=== PATIENT | female | born 1995 | race Caucasian/White ===

== ENCOUNTER 2017-05-18 01:30 | Inpatient (IN) | payer BC ==
[2017-05-18] MEDS ORDERED: ONDANSETRON 4 MG/2 ML VIAL IVP ONE (01:37)
[2017-05-18] MEDS ORDERED: NS 1,000 ML IV ONE ×2 (01:37→01:38)
--- NOTE | 2017-05-18 01:37 | EDPHY ---
H & P Stated Complaint: LUQ pain with vomitting starting 1800 HPI/ROS: HPI CHIEF COMPLAINT: Abdominal pain nausea vomiting abdominal distention HISTORY OF PRESENT ILLNESS: This patient very pleasant 21-year-old female she does have significant past medical history for diaphragmatic hernia repaired very young age. Left-sided. Additionally scoliosis surgery. Otherwise healthy no significant medical history. She does not take any daily medications. She presents emergency room nausea vomiting and abdominal pain abdominal distention and bloating for the past 8 hours. She states started 6: 00 p.m.. Bowel movement earlier this morning. No fever. No chest pain or shortness of breath. No back pain. States that her vomiting is persistent. Denies being . Currently on her menstrual cycle. Past Medical History: No significant medical history Past Surgical History: Scoliosis surgery, diaphragmatic hernia repair Social History: Denies daily use of drugs alcohol tobacco products. [employer] student. Family History: Noncontributory. ROS REVIEW OF SYSTEMS: A comprehensive 10 point review of systems is otherwise negative aside from elements mentioned in the history of present illness. Exam Constitutional appears nontoxic triage nursing summary reviewed, vital signs reviewed, awake/alert. Eyes normal conjunctivae and sclera, EOMI, PERRLA. HENT normal inspection, atraumatic, moist mucus membranes, no epistaxis, neck supple/ no meningismus, no raccoon eyes. Respiratory clear to auscultation bilaterally, normal breath sounds, no respiratory distress, no wheezing. Cardiovascular rate normal, regular rhythm, no murmur, no edema, distal pulses normal. Gastrointestinal abdomen is distended, somewhat bowel sounds, no high pitched noise, distended. Tender diffusely. Genitourinary no CVA tenderness. Musculoskeletal no midline vertebral tenderness, full range of motion, no calf swelling, no tenderness of extremities, no meningismus, good pulses, neurovascularly intact. Skin pink, warm, & dry, no rash, skin atraumatic. Neurologic awake, alert and oriented x 3, AAOx3, moves all 4 extremities equally, motor intact, sensory intact, CN II-XII intact, normal cerebellar, normal vision, normal speech. Psychiatric normal mood/affect. Heme/Lymph/Immune no lymphadenopathy. Differential diagnosis includes but is not limited to and in no particular order : Bowel obstruction, appendicitis, gallbladder disease, diverticulitis, colitis , enteritis, perforated viscus, gastritis, GERD, esophagitis, urinary tract infection, pyelonephritis, kidney stones Medical Decision Making: Plan for this patient IV fluids, Zofran for nausea Dilaudid for pain control. KUB upright. Check blood work. Rule out bowel obstruction. test. Urinalysis. Re-evaluation: 399 CT scan of the abdomen pelvis with IV contrast. The results of the study are shows a small bowel obstruction most likely cause of the anterior abdominal wall. Most likely he shins. Dilated small-bowel loops with free fluid present. No free air. The study was read by Dr. Grewal. I viewed the images myself on the PACS system. 0403; patient had an NG-tube placed. Surgery will be consult on should be admitted to the hospital. NPO. IV fluid NG tube. Bowel rest. And Surgical consult. Source: Patient - Personal History LMP (Females 10-55): Now Current Tetanus/Diphtheria Vaccine: Yes - Medical/Surgical History Hx Asthma: Yes Hx Chronic Respiratory Disease: No Hx Diabetes: No Hx Cardiac Disease: No Hx Renal Disease: No Hx Cirrhosis: No Hx Alcoholism: No Hx HIV/AIDS: No Hx Splenectomy or Spleen Trauma: No - Social History Smoking Status: Never smoked Constitutional: Initial Vital Signs Temperature (C) 36.4 C 05/18/17 01:31 Heart Rate 96 05/18/17 01:31 Respiratory Rate 18 05/18/17 01:31 Blood Pressure 139/91 H 05/18/17 01:31 O2 Sat (%) 96 05/18/17 01:31 O2 Delivery Mode Room Air Allergies/Adverse Reactions: penicillin G Allergy (Verified 05/18/17 01:35) Home Medications: Medication Instructions Recorded Levalbuterol Inhaler [Xopenex Hfa 1 puffs IH DAILY PRN 05/18/17 Inhaler (*)] Norgestimate-Ethinyl Estradiol 1 each PO DAILY 05/18/17 [Trinessa Tablet] Medical Decision Making - Data Points Laboratory Results: Laboratory Results 05/18/17 01:45 05/18/17 01:45 Medications Given: Potassium Chloride/Dextrose/Sod Cl (D5w 1/2 Ns W/ 20 Kcl/L) 1,000 mls @ 100 mls /hr IV CONT SHAKA Stop: 11/14/17 04:44 Last Admin: 05/19/17 14:43 Dose: 1,000 mls Ketorolac Tromethamine (Toradol) 15 mg IVP Q6HRS PRN PRN Reason: Pain, Inflammatory Stop: 05/23/17 06:10 Last Admin: 05/19/17 19:40 Dose: 15 mg Morphine Sulfate (Morphine) 1 - 2 mg IVP Q1HR PRN PRN Reason: Pain, Severe Unable to Take PO Stop: 05/28/17 04:34 Last Admin: 05/19/17 23:25 Dose: 2 mg Ondansetron HCl (Zofran) 4 mg IVP Q4HRS PRN PRN Reason: Nausea/Vomiting, Can't Take PO Stop: 11/14/17 04:34 Last Admin: 05/18/17 15:15 Dose: 4 mg Ondansetron HCl (Zofran Odt) 4 mg PO Q4HRS PRN PRN Reason: Nausea/Vomiting, Use 1st Stop: 11/14/17 04:34 Last Admin: 05/18/17 21:15 Dose: 4 mg Promethazine HCl (Phenergan) 6.25 - 12.5 mg IVP Q6HRS PRN PRN Reason: Nausea/Vomiting, Use 2nd Stop: 11/14/17 04:34 Last Admin: 05/19/17 00:03 Dose: 12.5 mg Discontinued Medications Hydromorphone HCl (Dilaudid) 0.5 mg IVP EDNOW ONE Stop: 05/18/17 01:42 Last Admin: 05/18/17 02:09 Dose: 0.5 mg Hydromorphone HCl (Dilaudid) 0.5 mg IVP EDNOW ONE Stop: 05/18/17 03:53 Last Admin: 05/18/17 03:55 Dose: 0.5 mg Sodium Chloride (Ns) 1,000 mls @ 0 mls/hr IV EDNOW ONE; Wide Open PRN Reason: Protocol Stop: 05/18/17 01:38 Last Admin: 05/18/17 01:49 Dose: 1,000 mls Sodium Chloride (Ns) 1,000 mls @ 0 mls/hr IV ONCE ONE PRN Reason: Wide Open Stop: 05/18/17 01:39 Last Admin: 05/18/17 02:12 Dose: 1,000 mls Ondansetron HCl (Zofran) 4 mg IVP EDNOW ONE Stop: 05/18/17 01:38 Last Admin: 05/18/17 02:09 Dose: 4 mg Departure - Departure Disposition: [facility] Inpatient Acute Clinical Impression: SBO (small bowel obstruction) Abdominal pain Qualifiers: Abdominal location: generalized Qualified Code(s): R10.84 - Generalized abdominal pain Condition: Fair
[2017-05-18] MEDS ORDERED: HYDROmorphONE/DILAUDID 1 MG/ML INJ IVP ONE ×2 (01:41→03:52)
[2017-05-18 01:55] LABS: % IMMATURE GRANULYOCYTES 0.3 % (0.0-1.1); ABSOLUTE IMMATURE GRANULOCYTES 0.05 10^3/uL (0.00-0.10); ADD DIFF? NO; ADD MORPH? NO; ADD SCAN? NO; ATYPICAL LYMPHOCYTE FLAG 0 (0-99); FRAGMENT RBC FLAG 0 (0-99); HEMOGLOBIN 16.7 g/dL (12.6-16.3); LEFT SHIFT FLG 0 (0-99); LIPEMIA HEMOLYSIS FLAG 80 (0-99); MEAN CELL HEMOGLOBIN 30.8 pg (27.9-34.1); MEAN CELL HEMOGLOBIN CONCENTR. 33.4 g/dL (32.4-36.7); MEAN CELL VOLUME 92.3 fL (81.5-99.8); MEAN PLATELET VOLUME 9.7 fL (8.7-11.7); PLATELET CLUMPS FLAG 0 (0-99); PLATELET COUNT 277 10^3/uL (150-400); RED BLOOD CELL COUNT 5.42 10^6/uL (4.18-5.33)
[2017-05-18 02:10] LABS: ALANINE AMINOTRANSFERASE 43 IU/L (9-52); ALBUMIN 4.8 g/dL (3.5-5.0); ALKALINE PHOSPHATASE 41 IU/L (38-126); ANION GAP 18 mEq/L (8-16); ASPARTATE AMINOTRANSFERASE 31 IU/L (14-46); BILIRUBIN,TOTAL 0.7 mg/dL (0.1-1.4); BILIRUBIN-CONJUGATED 0.4 mg/dL (0.0-0.5); BILIRUBIN-UNCONJUGATED 0.3 mg/dL (0.0-1.1); CALCIUM 10.3 mg/dL (8.5-10.4); CARBON DIOXIDE 21 mEq/l (22-31); CHLORIDE 102 mEq/L (97-110); CREATININE 0.8 mg/dL (0.6-1.0); GLOMERULAR FILTRATION RATE > 60; GLUCOSE 128 mg/dL (70-100); POTASSIUM 4.4 mEq/L (3.5-5.2); SODIUM 141 mEq/L (134-144); TOTAL PROTEIN 8.7 g/dL (6.3-8.2)
[2017-05-18] MEDS ORDERED: IOPAMIDOL (ISOVUE-300) 100 ML BTL ONE ×2 (02:38→02:58)
[2017-05-18] MEDS ORDERED: ONDANSETRON DISINTEGRATING 4 MG TAB PO PRN (04:35)
[2017-05-18] MEDS ORDERED: ONDANSETRON 4 MG/2 ML VIAL IVP PRN (04:35)
--- NOTE | 2017-05-18 05:13 | GHP ---
[f rep st] HISTORY AND PHYSICAL DATE OF ADMISSION: 05/18/2017 CHIEF COMPLAINT: Abdominal pain with nausea and vomiting. HISTORY OF PRESENT ILLNESS: This is an otherwise healthy 21-year-old female who was in her usual state of health until about 6 p.m. this evening. The patient states that she ate a late afternoon snack and was feeling fine and then out of no where, started to have abdominal distention and pain, which is associated with nausea and multiple bouts of vomiting. This persisted, which prompted her presentation here at the emergency department. Once here in the emergency department, she received some IV fluids and pain medicine, which helped with her abdominal pain, but she still remains distended. She states that she has had an episode similar to this previously over the summer, which abated with n.p.o. and a fluid restriction at home. This episode is much worse. She describes her pain as crampy in the left side of the abdomen and colicky in nature, better with abstaining from p.o. intake and worse with strenuous activity. She has not passed gas for most of the day. She has been nauseated and has been vomiting throughout the afternoon. She denies having any fevers or chills. PAST MEDICAL HISTORY: Diaphragmatic hernia, scoliosis, asthma. PAST SURGICAL HISTORY: Diaphragmatic hernia repair in infancy and spinal reconstruction at age 16. She also had a tonsillectomy as a child. CURRENT MEDICATIONS: Include inhalers as needed and control. 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 Denies illicit drug use. Endorses social alcohol use. FAMILY HISTORY: Noncontributory. REVIEW OF SYSTEMS: A full 10-point review was performed and unless explicitly stated above, is otherwise negative. PHYSICAL EXAMINATION: VITAL SIGNS: Temperature 36.9, blood pressure 140/70, heart rate 88, she is 99% on room air with respirations at 16. CONSTITUTIONAL: She is in a mild amount of distress. She appears comfortable. EYES: Pupils are equal, round, and reactive to light and accommodation. She has anicteric sclerae and her extraocular movements are intact. EARS, NOSE, MOUTH AND THROAT: She has dry mucous membranes. Nasogastric tube is going in her right nares. Her hearing is normal. She has no mucosal ulcers. CARDIOVASCULAR: She has a regular rate and rhythm without any murmurs. RESPIRATORY: She has no respiratory distress. No rales or rhonchi. GASTROINTESTINAL: Her abdomen is soft. It is distended. She has hypoactive bowel sounds. There is no rebound tenderness or guarding. SKIN: Warm, normal color. No rashes. Left subcostal incision consistent with previous surgical history. MUSCULOSKELETAL: She has full muscle strength without tenderness and normal joint range of motion. NEUROLOGIC: She is alert and oriented x3. Her cranial nerves 2 through 12 are intact. She has no weakness and no numbness. PSYCHIATRIC: She is interacting appropriately. She is not anxious. She is not encephalopathic. LYMPH/HEME AND IMMUNOLOGIC: She has no cervical or groin lymphadenopathy. LABORATORY DATA: Leukocytosis to 15,000, H and H elevated at 16.7 and 50. Chemistry is largely unremarkable. IMAGING: Includes a CT scan of her abdomen and pelvis. Images were personally reviewed shows some dilated fluid-filled small bowel loops, fluid within the stomach. No clear transition point, but consistent with small bowel obstruction. ASSESSMENT AND PLAN: A 21-year-old female with small bowel obstruction. At this point in time, the patient is not in extremis and appears stable. A nasogastric tube was just placed in the emergency department, which appears to be helping. Will plan to admit the patient for observation, decompression and IV hydration. She understands that this is an ongoing evolving process and that we will re-evaluate daily. I told her that the vast majority of small bowel obstructions resolve with nasogastric tube decompression and conservative treatment. We will continue to monitor. I did tell her that we may need to acquire more imaging including a small bowel follow-through versus more plain films and that she may ultimately need surgery if this does not resolve. She understands and wishes to proceed with the above plan. /[id number]/MODL MTDD
[2017-05-18] MEDS: D5W 1/2 NS W/ 20 KCl/L 1,000 ML IV SCH (05:32)
[2017-05-18] MEDS: KETOROLAC 15 MG/1 ML SDV IVP PRN ×4 (06:26→22:38)
[2017-05-18 07:44] LABS: COLOR YELLOW; LEUKOCYTE ESTERASE,URINE NEGATIVE (NEGATIVE); NITRITE,URINE NEGATIVE (NEGATIVE)
--- NOTE | 2017-05-18 09:45 | ASMTCASEMG ---
Living Arrangements What is your living Answers: Alone arrangement? Who do you live with? Type Of Residence What kind of residence do Answers: Dormitory you live in? Discharge Plan Comments Coordination Status Comments Notes: Chart reviewed and spoke w/ Em RN Pt is a 21 y/o female admitted w/ abdominal pain, nausea and vomiting. 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 Pt will most likely d/c independent when she is medically stable. CM available for changes. Date Signed: 05/18/2017 09:44 AM Electronically Signed By:PENELOPE Peterson
--- NOTE | 2017-05-18 18:25 | SOAPPROG ---
SOAP Progress Note Assessment/Plan: Assessment: admitted for sbo Feels improved w NG decompression No flatus yet Spent 20 minutes at bedside with family Discussed no changes tonight. May have cough drops or hard candies to ease throat discomfort Discussed Dr. Lancaster may consider gastrograffin down NG tomorrow with X ray to see if any transition/movement Unable to explain exact etiology or length of hospital course at this time Subcostal incision Abdomen soft but distended Mild tenderness Plan: 05/18/17 18:23 Objective: Vital Signs Temp Pulse Resp BP Pulse Ox 36.7 C 76 18 111/66 96 05/18/17 11:54 05/18/17 11:54 05/18/17 11:54 05/18/17 11:54 05/18/17 11:54 05/17/17 05/18/17 05/19/17 05:59 05:59 05:59 Intake Total 200 1250 Output Total 100 Balance 200 1150 ICD10 Worksheet Patient Problems: Problems Problem Status Onset Abdominal pain Acute SBO (small bowel obstruction) Acute
[2017-05-18] MEDS: PROMETHAZINE HCL 25 MG/ML INJ IVP PRN (22:36)
[2017-05-19] MEDS: KETOROLAC 15 MG/1 ML SDV IVP PRN ×4 (00:03→19:40)
[2017-05-19] MEDS: PROMETHAZINE HCL 25 MG/ML INJ IVP PRN ×2 (00:03→23:48)
[2017-05-19 07:47] VITALS: RESP 16
[2017-05-19] MEDS: D5W 1/2 NS W/ 20 KCl/L 1,000 ML IV SCH ×2 (14:43→23:57)
--- NOTE | 2017-05-19 17:10 | SOAPPROG ---
SOAP Progress Note Assessment/Plan: Assessment/Plan: - 21yo F c pSBO - Pain improved and abdomen remains soft and minimally distended. NGT with decent output today. - Will eval in AM but would like to do SBFT. - check labs in AM as well 05/19/17 17:09 Subjective: Having some pain but doing ok, passing flatus. Objective: Vital Signs Temp Pulse Resp BP Pulse Ox 36.6 C 83 16 110/69 93 05/19/17 10:59 05/19/17 10:59 05/19/17 10:59 05/19/17 10:59 05/19/17 10:59 05/18/17 05/19/17 05/20/17 05:59 05:59 05:59 Intake Total 200 1250 Output Total 250 1000 Balance 200 1000 -1000 ICD10 Worksheet Patient Problems: Problems Problem Status Onset Abdominal pain Acute SBO (small bowel obstruction) Acute
[2017-05-20 05:29] LABS: HEMOGLOBIN 13.4 g/dL (12.6-16.3); MEAN CELL HEMOGLOBIN 30.5 pg (27.9-34.1); MEAN CELL HEMOGLOBIN CONCENTR. 32.7 g/dL (32.4-36.7); MEAN CELL VOLUME 93.4 fL (81.5-99.8); RED BLOOD CELL COUNT 4.39 10^6/uL (4.18-5.33); RED CELL DISTRIBUTION WIDTH 12.9 % (11.5-15.2)
[2017-05-20 05:45] LABS: ANION GAP 10 mEq/L (8-16); CALCIUM 8.5 mg/dL (8.5-10.4); CARBON DIOXIDE 23 mEq/l (22-31); CHLORIDE 100 mEq/L (97-110); CREATININE 0.9 mg/dL (0.6-1.0); GLOMERULAR FILTRATION RATE > 60; GLUCOSE 92 mg/dL (70-100); POTASSIUM 4.3 mEq/L (3.5-5.2); SODIUM 133 mEq/L (134-144)
[2017-05-20] MEDS: KETOROLAC 15 MG/1 ML SDV IVP PRN (06:53)
--- NOTE | 2017-05-20 11:05 | SOAPPROG ---
SOAP Progress Note Assessment/Plan: Assessment/Plan: - 21yo F c pSBO - abdomen remains soft, minimally distended. Minimally tender - NGT has slowed, did have some flatus yesterday. SBFT this AM 05/19/17 17:09 05/20/17 11:04 Objective: Vital Signs Temp Pulse Resp BP Pulse Ox 36.9 C 95 16 105/71 93 05/20/17 08:21 05/20/17 08:21 05/20/17 08:21 05/20/17 08:21 05/20/17 08:21 Laboratory Results 05/20/17 03:43 05/20/17 03:43 05/19/17 05/20/17 05/21/17 05:59 05:59 05:59 Intake Total 1250 2400 Output Total 250 1200 Balance 1000 1200 ICD10 Worksheet Patient Problems: Problems Problem Status Onset Abdominal pain Acute SBO (small bowel obstruction) Acute
[2017-05-20 14:54] VITALS: BP 108/72; PULSE 92; TEMP 98.6; O2SAT 94
== END 2017-05-20 18:30 | disposition home or self-care (01) | DRG 390 ==
LOC: F2W 05:08
PROVIDERS: ADMIT Surgery; ATTEND Surgery
PROC: 0DH67UZ Insertion of Feeding Device into Stomach, Via Natural or Artificial Opening (ICD-10-PCS; principal; 2017-05-18)
DX: K56.609 Unspecified intestinal obstruction, unspecified as to partial versus complete obstruction (principal)
CPT/HCPCS: 96374; J1170; J1885; J2405; J2550; Q9967